=== PATIENT | female | born 1960 | race Caucasian/White ===

== ENCOUNTER → 2016-10-28 | Outpatient (CLI) | payer OTHER, BC ==
[~2016-10-28] MED LIST: NO HOME MEDICATIONS
== END ==
LOC: COL.RAD 10-26 11:30
DX: R22.9 Localized swelling, mass and lump, unspecified (principal); M41.82 Other forms of scoliosis, cervical region
CPT/HCPCS: Q9967

== ENCOUNTER → 2017-01-10 | Outpatient (CLI) | payer OTHER, BC | LOC: MC.RAD 10:30 | DX: Z12.31 Encounter for screening mammogram for malignant neoplasm of breast (principal); N64.89 Other specified disorders of breast ==

== ENCOUNTER → 2017-01-13 | Outpatient (CLI) | payer OTHER, BC | LOC: MC.RAD 13:53 | DX: N60.01 Solitary cyst of right breast (principal); N64.89 Other specified disorders of breast ==

== ENCOUNTER → 2018-01-24 | Outpatient (CLI) | payer BC | LOC: MC.RAD 14:18 | DX: Z12.31 Encounter for screening mammogram for malignant neoplasm of breast (principal) ==

== ENCOUNTER → 2019-03-12 | Outpatient (CLI) | payer BC | LOC: MC.RAD 07:21 | DX: Z12.31 Encounter for screening mammogram for malignant neoplasm of breast (principal) ==

== ENCOUNTER → 2020-03-19 | Outpatient (CLI) | payer BC | LOC: MC.RAD 06:55 | DX: Z12.31 Encounter for screening mammogram for malignant neoplasm of breast (principal) ==

== ENCOUNTER → 2020-04-12 | Outpatient (CLI) | payer BC ==
[2020-04-12 08:31] LABS: HEMATOCRIT 50.8 % (37.0-47.0); HEMOGLOBIN 16.7 g/dl (12.5-16.0); MEAN CELL VOLUME 89 fl (80.0-100.0); MEAN CORPUSCULAR HEMOGLOBIN 29 pg (27.0-31.0); MEAN CORPUSCULAR HGB CONC 33 g/dl (33.0-37.0); MEAN PLATELET VOLUME 10.3 fl (7.4-10.4); PLATELET COUNT 349 K/mm3 (130-400); RED BLOOD COUNT 5.68 M/mm3 (4.10-5.30); REDCELL DISTRIBUTION WIDTH-CV 13.2 % (11.5-14.5)
[2020-04-12 08:53] LABS: CALCIUM 9.5 mg/dL (8.4-10.2); CREATININE, serum 0.91 (0.52-1.25); POTASSIUM 4.3 mmol/L (3.4-5.0)
[2020-04-13 12:20] LABS: CORTISOL, AM (0800) 6 ug/dL (3-20)
== END ==
LOC: COL.LAB 07:53
PROVIDERS: Urology
DX: E27.8 Other specified disorders of adrenal gland (principal)

== ENCOUNTER 2020-04-21 14:49 | Inpatient (IN) | payer BC ==
[~2020-04-21] VITALS: Ht 170.2 cm; Wt 89.5 kg
[2020-05-04] MEDS ORDERED: [UNRECOGNIZED DRUG - OTHER] PO (09:04)
[2020-05-04] MEDS ORDERED: LOPRESSOR 225 MG/TAB PO (09:05)
[2020-05-04] MEDS ORDERED: LIPITOR 10MG10 MG PO (09:05)
[2020-05-04] MEDS ORDERED: ATIVAN 0.50.5 MG/TAB PO (09:06)
[2020-05-04] MEDS ORDERED: PRINIVIL10 MG PO (09:07)
[2020-05-04 09:21] VITALS: BP 122/76; PULSE 93; TEMP 98.2
[2020-05-04 09:26] VITALS: BP 122/76; PULSE 93
--- NOTE | 2020-05-04 09:30 | NUR ---
Patient admitted to room 323. rounded. PLan of care reviewed.
--- NOTE | 2020-05-04 10:00 | NUR ---
rounded & orders obtained.
--- NOTE | 2020-05-04 10:35 | NUR ---
Iv started & IVF per orders. Patient denies pain. medication to pharmacy for label. Will monitor.
[2020-05-04 11:37] LABS: BASO % 0.5 % (0.0-2.0); EOS # 0.1 (0.0-0.7); EOS % 0.9 % (0-4.0); GRAN # 4.5 (1.4-6.5); GRAN % 78.1 % (42.2-75.2); HEMATOCRIT 45.4 % (37.0-47.0); HEMOGLOBIN 14.9 g/dl (12.5-16.0); LYMPH # 0.8 (1.2-3.4); LYMPH % 13.3 % (20.0-51.0); MEAN CELL VOLUME 91 fl (80.0-100.0); MEAN CORPUSCULAR HEMOGLOBIN 30 pg (27.0-31.0); MEAN CORPUSCULAR HGB CONC 33 g/dl (33.0-37.0); MEAN PLATELET VOLUME 10.2 fl (7.4-10.4); MONO # 0.4 (0.1-0.6); MONO % 6.5 % (1.7-9.3); PLATELET COUNT 270 K/mm3 (130-400); RED BLOOD COUNT 5.01 M/mm3 (4.10-5.30); REDCELL DISTRIBUTION WIDTH-CV 13.1 % (11.5-14.5)
[2020-05-04 11:45] LABS: CREATININE, serum 0.86 (0.52-1.25); POTASSIUM 4.3 mmol/L (3.4-5.0)
[2020-05-04 11:58] VITALS: BP 127/73; PULSE 88
--- NOTE | 2020-05-04 12:15 | NUR ---
Vitals remain stable. 5 page assessment completed. Patient tolerates lunch.
--- NOTE | 2020-05-04 14:31 | NUR ---
Patient reports returning to home with Manas as care support. Patient reports that her alternate contact is son Americo . PCP is Dr. Weiner and rx obtained from [facility]. Patient denies having any DME needs or supports. Patient denies having a DPOA. No skilled services. Patient denies any care concerns. Patient indicated no additional needs at this time. Will follow.
[2020-05-04 15:35] VITALS: BP 128/82; PULSE 96; TEMP 98.4
--- NOTE | 2020-05-04 16:45 | NUR ---
Patient complains of a headache. Tylenol per orders. Patient to have only clear liquids for dinner & NPO at middnight. Sprite provided. Vss. Minimal needs. Will monitor.
--- NOTE | 2020-05-04 19:20 | NUR ---
Patient having a popcicle & sprite for dinner. Hs meds given per request. Will report off to night nurse
[2020-05-04 20:00] VITALS: BP 133/79; PULSE 84; TEMP 98.2
--- NOTE | 2020-05-04 20:00 | NUR ---
PATIENT IS A&O. VSS. NO C/O PAIN OR NAUSEA. PATIENT WILL BE NPO AFTER MN FOR SURGERY TOMORROW AM. INDEPENDENT IN ROOM. HEAD TO TOE ASSESSMENT WNL. PM MEDS GIVEN. NO OTHER NEEDS.
--- NOTE | 2020-05-04 23:00 | NUR ---
report received from ERIK Delarosa
--- NOTE | 2020-05-04 23:35 | NUR ---
appears to be dozing, awakens easily when nurse entered room, denies pain or needs at this time
[2020-05-05] VITALS (10 sets, daily range): BP systolic 116–153; BP diastolic 68–90; PULSE 69–106; TEMP 97.4–98.9
--- NOTE | 2020-05-05 01:11 | NUR ---
appears to be sleeping
--- NOTE | 2020-05-05 02:40 | NUR ---
continues to sleep
--- NOTE | 2020-05-05 04:20 | NUR ---
awakened for vital signs, has been sleeping on rounds, denies needs at this time
--- NOTE | 2020-05-05 06:59 | NUR ---
bedside shift report given to ERIK Delarosa
--- NOTE | 2020-05-05 08:00 | NUR ---
PATIENT IS A&O. VSS. PATIENT DENIES PAIN. NPO FOR SURGERY. CONSENT ON CHART. PATIENT IS VERY NERVOUS, SEE ORDERS FOR PRE-OP VALIUM. IV FLUIDS INFUSING INTO LEFT FORARM VIA PUMP. NO C/O N/V. HEAD TO TOE ASSESSMENT COMPLETE. AM MEDS GIVEN. NO OTHER NEEDS. PATIENT INDEPENDENT IN ROOM.
--- NOTE | 2020-05-05 10:40 | NUR ---
PATIENT GOING DOWN TO OR VIA BED. CONSENT ON CHART. PRE-OPS GIVEN. EXTRA IV PUMPS SENT FOR ANESTHESIA.
--- NOTE | 2020-05-05 11:46 | NUR ---
First visit from the analytics specialist. No needs right now.
--- NOTE | 2020-05-05 15:49 | NUR ---
[facility] Therapist contacted patient's , Manas to touch base. Manas confirmed patient sees Dr. Weiner and obtains medications at [facility]. 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 Patient does not use any DME and is independent with ADLS. Manas does not think patient has Advance Directives. SW will continue to follow for discharge needs.
[2020-05-05 16:39] LABS: HEMOGLOBIN 14.3 g/dl (12.5-16.0); MEAN CELL VOLUME 90 fl (80.0-100.0); MEAN CORPUSCULAR HEMOGLOBIN 30 pg (27.0-31.0); MEAN CORPUSCULAR HGB CONC 33 g/dl (33.0-37.0); MEAN PLATELET VOLUME 9.9 fl (7.4-10.4); PLATELET COUNT 281 K/mm3 (130-400); REDCELL DISTRIBUTION WIDTH-CV 12.7 % (11.5-14.5)
[2020-05-05 17:02] LABS: BAND 6 % (0-10); LYMPHOCYTE 2 % (20.0-51.0); NEUTROPHILS 91 % (42.0-75.2); PLATELET ESTIMATE NORMAL (NORMAL)
[2020-05-05 17:10] LABS: ALBUMIN 3.5 gm/dL (3.5-5.0); BILIRUBIN,TOTAL 0.5 mg/dL (0.0-1.0); CALCIUM 8.2 mg/dL (8.4-10.2); CREATININE, serum 0.95 (0.52-1.25); POTASSIUM 4.6 mmol/L (3.4-5.0)
--- NOTE | 2020-05-05 17:55 | NUR ---
PATIENT BACK IN ROOM 323 POST OP. ORIENTED BUT VERY DROWSY. PATIENT NOW HAVE RIGHT IJ WITH POST OP FLUIDS INFUSING VIA PUMP. LEFT WRIST AND LEFT HAND IV'S TO INT. NO C/O N/V. CLEAR LIQUIDS AT BEDSIDE. VSS. PATIENT DENIES PAIN. CAMARENA TO DD WITH SMALL AMOUNTS OF CLEAR YELLOW URINE NOTED. HEAD TO TOE ASSESSMENT COMPLETE. SCD'S TO BLE. PATIENT SLEEPING. CALL LIGHT IN REACH.
--- NOTE | 2020-05-05 19:40 | NUR ---
Pt. laying in bed. Pt. is A&OX3, assessment complete. INT to lt. hand and lt. forearm patent. TLC to rt. IJ patent, IV fluids infusing per orders. Seven adb. lap sites noted, edges well approximated. Pt. denies pain or other needs, call light within reach.
[2020-05-06] VITALS: BP 130/81; PULSE 92; TEMP 97.4
[2020-05-06 04:00] VITALS: BP 150/80; PULSE 94; TEMP 97.7
[2020-05-06 06:00] LABS: BASO % 0.1 % (0.0-2.0); GRAN # 13.6 (1.4-6.5); HEMATOCRIT 40.1 % (37.0-47.0); HEMOGLOBIN 13.2 g/dl (12.5-16.0); LYMPH # 0.9 (1.2-3.4); LYMPH % 5.4 % (20.0-51.0); MEAN CELL VOLUME 90 fl (80.0-100.0); MEAN CORPUSCULAR HEMOGLOBIN 30 pg (27.0-31.0); MEAN CORPUSCULAR HGB CONC 33 g/dl (33.0-37.0); MEAN PLATELET VOLUME 10.2 fl (7.4-10.4); MONO # 1.3 (0.1-0.6); PLATELET COUNT 254 K/mm3 (130-400); RED BLOOD COUNT 4.48 M/mm3 (4.10-5.30); REDCELL DISTRIBUTION WIDTH-CV 13.1 % (11.5-14.5)
[2020-05-06 06:10] LABS: CALCIUM 8.3 mg/dL (8.4-10.2); CREATININE, serum 0.86 (0.52-1.25); POTASSIUM 4.5 mmol/L (3.4-5.0)
[2020-05-06 07:41] VITALS: BP 140/76; PULSE 101; TEMP 97.4
[2020-05-06 11:47] VITALS: BP 129/78; PULSE 105; TEMP 97.8
--- NOTE | 2020-05-06 12:21 | NUR ---
Squires catheter discontinued at [address] order.
--- NOTE | 2020-05-06 12:28 | NUR ---
Dr Nguyen notified of consult.
[2020-05-06 15:27] VITALS: BP 114/65; PULSE 104; TEMP 98
[2020-05-06 20:10] VITALS: BP 117/63; PULSE 91; TEMP 97.5
--- NOTE | 2020-05-06 20:30 | NUR ---
Pt. sitting up in bed at this time. Pt. is A&OX3, assessment complete. INT to lt. wrist and lt. forearm patent. TLC to Rt. IJ patent, IV fluids infusing per orders. Abd. Lap sites x7 well approximated. Pt. denies pain or other needs, call light within reach.
[2020-05-07] VITALS (7 sets, daily range): BP systolic 109–128; BP diastolic 57–74; PULSE 85–101; TEMP 97.4–98
[2020-05-07 08:47] LABS: BASO % 0.2 % (0.0-2.0); EOS # 0.1 (0.0-0.7); EOS % 1.4 % (0-4.0); GRAN # 6.8 (1.4-6.5); GRAN % 79.5 % (42.2-75.2); LYMPH # 0.9 (1.2-3.4); LYMPH % 10.1 % (20.0-51.0); MEAN CELL VOLUME 92 fl (80.0-100.0); MEAN CORPUSCULAR HEMOGLOBIN 30 pg (27.0-31.0); MEAN CORPUSCULAR HGB CONC 33 g/dl (33.0-37.0); MEAN PLATELET VOLUME 10.2 fl (7.4-10.4); MONO # 0.7 (0.1-0.6); MONO % 8.3 % (1.7-9.3); PLATELET COUNT 229 K/mm3 (130-400); RED BLOOD COUNT 4.03 M/mm3 (4.10-5.30); REDCELL DISTRIBUTION WIDTH-CV 13.4 % (11.5-14.5)
[2020-05-07 08:54] LABS: CALCIUM 8.4 mg/dL (8.4-10.2); CREATININE, serum 0.84 (0.52-1.25); POTASSIUM 3.9 mmol/L (3.4-5.0)
[2020-05-07 08:55] LABS: HEMATOCRIT 36.9 % (37.0-47.0)
--- NOTE | 2020-05-07 09:34 | NUR ---
Patient alert and oriented, answers questions appropriately. See assessment. Abdomen soft, non tender, non distended. Bowel sounds active x4 quads. +Flatus. No bowel movement. Lap sites to abdomen with edges well approximated, no redness or drainage noted. ERAS protocol reviwed with patient. No c/o at this time.
--- NOTE | 2020-05-07 21:24 | NUR ---
PT IN BED WITH HOB AT 60 DEGREE ANGLE, A/O X3. DENIES PAIN OR DISCOMFORT AT THIS TIME. PT IS ENCOURAGED TO EAT, BS AT 83. PT HAS NO FURTHER NEEDS AT THIS TIME, CALL LIGHT WITHIN REACH.
[2020-05-08 03:01] VITALS: BP 117/70; PULSE 90; TEMP 98.1
--- NOTE | 2020-05-08 04:53 | NUR ---
SHIFT SUMMARY: PT DID WELL, NO C/O PAIN OR DISCOMFORT. PT HAD BLOOD GLUCOSE BETWEEN 83 AND 71 THIS SHIFT. PT HAD A BLOOD GLUCOSE OF 71 AT MIDNIGHT. BROUGHT IN A SNACK FOR THE PT, BUT PT DID NOT WANT TO EAT MUCH. PT STATED THAT SHE JUST GOT BACK ON A REGULAR DIET AND FELT THAT SHE WOULD GET SICK IF SHE ATE MORE. THE NEXT BLOOD GLUCOSE WAS 79. PT SLEEPING/RESTING IN BED AT THIS TIME, WITH NO C/O PAIN OR DISCOMFORT, CALL LIGHT WITHIN REACH.
[2020-05-08 07:40] VITALS: BP 138/74; PULSE 92; TEMP 98.2
--- NOTE | 2020-05-08 10:30 | NUR ---
AM SHIFT ASSESSMENT COMPLETE. PATIENT REPORTING MILD DISCOMFORT AT INCISION SITES. ABDOMINAL LAP SITES EQUINE INTERNSHIP WITH EDGES WELL APPROXIMATED. KB BISWAS PA-C CALLED AND NOTIFIED OF HOSPITALIST AND SURGEON SIGNING OFF. KB TO ENTER DISCHARGE ORDERS.
--- NOTE | 2020-05-08 11:30 | NUR ---
PATIENTS RIGHT IJ REMOVED PER DOCTOR ORDERS. 2 SUTURES REMOVED. GAUZE & FOAM TAPE PRESSURE DRESSING APPLIED AND PRESSURE HELD FOR 5 MINUTES. PATIENT RESTING ON BACK FLAT FOR 20 MINUTES.
--- NOTE | 2020-05-08 12:49 | NUR ---
DISCHARGE INSTRUCTIONS REVIEWED WITH PATIENT. QUESTIONS SOUGHT AND ANSWERED. PATIENT PERSONAL BELONGINGS GATHERED. PATIENT AMBULATED WITH SURGICAL STAFF TO PERSONAL VEHICLE. PATIENT DISCHARGED.
== END 2020-05-08 12:50 | disposition home or self-care (01) | DRG 614 ==
LOC: SURG 05-01 12:15
PROVIDERS: Hospitalist; Surgery; ADMIT Urology
PROC: 0GT34ZZ Resection of Right Adrenal Gland, Percutaneous Endoscopic Approach (ICD-10-PCS; principal; 2020-05-05 11:30)
PROC: 0DBB4ZZ Excision of Ileum, Percutaneous Endoscopic Approach (ICD-10-PCS; 2020-05-05 11:30)
DX: D35.01 Benign neoplasm of right adrenal gland (principal); C49.A3 Gastrointestinal stromal tumor of small intestine; E87.1 Hypo-osmolality and hyponatremia; R00.0 Tachycardia, unspecified; R19.00 Intra-abdominal and pelvic swelling, mass and lump, unspecified site; E16.2 Hypoglycemia, unspecified; I10 Essential (primary) hypertension; F41.9 Anxiety disorder, unspecified; J30.2 Other seasonal allergic rhinitis; E78.5 Hyperlipidemia, unspecified; Z88.0 Allergy status to penicillin; Z90.710 Acquired absence of both cervix and uterus
CPT/HCPCS: 99223; 99231-AI; 99232-AI; A4314; A9284; C1751; G0378; J0690; J1100; J1885; J2250; J2370; J2405; J2704; J2795; J3010; J3475; J7030; J7060; J7120

== ENCOUNTER → 2020-04-29 | Outpatient (CLI) | payer BC | LOC: COL.RAD 13:35 | DX: E27.8 Other specified disorders of adrenal gland (principal) ==

== ENCOUNTER → 2021-03-20 | Outpatient (CLI) | payer BC ==
[~2021-03-20] MED LIST changes: +ATIVAN 0.50.5 MG/TAB PO; +LIPITOR 10MG10 MG PO; +LOPRESSOR 225 MG/TAB PO; +PRINIVIL10 MG PO; +[UNRECOGNIZED DRUG - OTHER] PO
== END ==
LOC: MC.RAD 06:53
DX: Z12.31 Encounter for screening mammogram for malignant neoplasm of breast (principal)

== ENCOUNTER → 2021-12-02 | Outpatient (CLI) | payer BC | LOC: COL.RAD 11:26 | DX: R31.0 Gross hematuria (principal) | CPT/HCPCS: A9562; J1940 ==

== ENCOUNTER 2024-01-04 13:35 | Emergency (ER) | payer BC ==
[~2024-01-04] VITALS: Ht 170.2 cm; Wt 86.4 kg
[2024-01-04 14:06] VITALS: TEMP 97.7
[2024-01-04] MEDS ORDERED: Ondansetron 4 MG/2 ML VIAL IV ONE (15:00)
[2024-01-04] MEDS ORDERED: LR 1,000 ML IV ONE (15:00)
[2024-01-04] MEDS ORDERED: Morphine 4 MG/ML VIAL IV ONE (15:00)
[2024-01-04 15:38] LABS: BASO # 0.1 K/mm3 (0.0-0.2); BASO % 0.5 % (0.0-2.0); EOS # 0.1 K/mm3 (0.0-0.7); EOS % 0.6 % (0.0-4.0); GRAN # 8.3 K/mm3 (1.4-6.5); GRAN % 79.1 % (42.2-75.2); HEMATOCRIT 50.5 % (37.0-47.0); HEMOGLOBIN 16.9 g/dl (12.5-16.0); LYMPH # 1.4 K/mm3 (1.2-3.4); LYMPH % 13.6 % (20.0-51.0); MEAN CELL VOLUME 88 fl (80.0-100.0); MEAN CORPUSCULAR HEMOGLOBIN 30 pg (27-31); MEAN CORPUSCULAR HGB CONC 34 g/dl (33.0-37.0); MONO # 0.6 K/mm3 (0.1-0.6); MONO % 5.8 % (1.7-9.3); PLATELET COUNT 274 K/mm3 (130-400); RED BLOOD COUNT 5.72 M/mm3 (4.10-5.30); REDCELL DISTRIBUTION WIDTH-CV 13.6 % (11.5-14.5)
[2024-01-04 15:47] LABS: URINE APPEARANCE Cloudy (CLEAR/HAZY); URINE COLOR Yellow (YELLOW)
[2024-01-04 15:48] LABS: URINE BLOOD 3+ (NEGATIVE); URINE GLUCOSE Negative (NEGATIVE); URINE KETONE 1+ (NEGATIVE); URINE NITRATE Negative (NEGATIVE); URINE PROTEIN(semi-quant) 1+ (NEGATIVE); URINE UROBILINOGEN 0.2 E.U/dL (0.2-1.0)
[2024-01-04 15:55] LABS: ALBUMIN 4.3 g/dL (3.4-4.8); BILIRUBIN,TOTAL 0.7 mg/dL (0.2-1.2); CALCIUM 9.5 mg/dL (8.4-10.2); CREATININE, serum 1.23 mg/dL (0.57-1.11); TOTAL PROTEIN 7.5 g/dl (6.2-8.1)
[2024-01-04 16:21] LABS: URINE RBC >50 /hpf (0-2)
[2024-01-04 16:22] LABS: COLLECTION METHOD CLEAN CATCH
[2024-01-04] MEDS ORDERED: FLOMAX 0.40.4 MG/CAP PO (17:46)
[2024-01-04] MEDS ORDERED: ZOFRAN ODT4 MG PO (17:46)
[2024-01-04 18:00] VITALS: BP 151/93; PULSE 98
== END 2024-01-04 18:00 | disposition home or self-care (01) ==
LOC: COL.ER 13:35
PROVIDERS: Emergency Medicine
DX: N13.2 Hydronephrosis with renal and ureteral calculous obstruction (principal); N39.9 Disorder of urinary system, unspecified
CPT/HCPCS: J2270; J2405; J7120

== ENCOUNTER 2024-02-15 07:49 | Day surgery (SDC) | payer BC ==
[~2024-02-15] VITALS: Ht 170.2 cm; Wt 100.4 kg
[~2024-02-15 07:49] MED LIST changes: +FLOMAX 0.40.4 MG/CAP PO; +Famotidine 20 MG TAB PO SCH; +LR 1,000 ML IV SCH; +Meclizine 25 MG TAB PO SCH; +ZOFRAN ODT4 MG PO
[2024-02-15] MEDS ORDERED: PRINIVIL20 MG PO (09:14)
[2024-02-15 09:20] VITALS: BP 139/87; PULSE 95; TEMP 97.6
--- NOTE | 2024-02-15 09:41 | NUR ---
Pt brought to [facility] [place] [facility] by radiology. Admission assessments completed. Consent signed. Pharmacy, medications, and allergies confirmed. 20G IV inserted into RFA on second attempt. Pt is alert, oriented x4, makes needs known, ambulates with steady gait. Will give preop medications when the patient returns from radiology, they estimate they will get her at 1030. Pt reports a loose bottom front tooth. VSS. Denies complaints. Cart in low position, call light within reach.
--- NOTE | 2024-02-15 11:16 | NUR ---
Pt goes to radiology via w/c, returns at this time. Up to BR to void. Denies complaints.
--- NOTE | 2024-02-15 13:06 | NUR ---
Pt up for urine void at this time. at bedside.
[2024-02-15] MEDS ORDERED: Lidocaine PF 2% (20 MG/ML) 5 ML VIAL ONE (14:13)
[2024-02-15] MEDS ORDERED: fentaNYL 50 MCG/ML 5 ML VIAL ONE (14:14)
[2024-02-15] MEDS ORDERED: NORCO 325 MG-51 TAB PO (14:49)
[2024-02-15] MEDS ORDERED: Ibuprofen 600 MG TAB PO PRN (15:00)
[2024-02-15] MEDS ORDERED: Acetaminophen 325 MG TAB PO PRN (15:00)
[2024-02-15] MEDS ORDERED: Ondansetron 4 MG/2 ML VIAL IV PRN ×2 (15:00→15:45)
[2024-02-15] MEDS ORDERED: HYDROmorphone 1 MG/1 ML SYRINGE [PACU/SDC ONLY] IV PRN (15:45)
[2024-02-15] MEDS ORDERED: fentaNYL 50 MCG/ML 1 ML SYRINGE/VIAL [PACU/SDC ONLY] IV PRN (15:45)
[2024-02-15 17:11] VITALS: BP 128/80; PULSE 87
[2024-02-15 17:14] VITALS: BP 127/84; PULSE 88; TEMP 97
--- NOTE | 2024-02-15 17:32 | NUR ---
1711- RECIEVED REPORT FROM ERIK ANN. MONITORS PLACED AND VS OBTAINED. MINIMAL COMPLAINTS OF PAIN AND NO COMPLAINTS OF NASUEA. PEPSI AND PUDDING GIVEN. 1719- DISCHARGE TEACHING DONE WITH PT AND SPOUSE AT BEDSIDE. ANSWERED ALL QUESTIONS. TOLERATING FOOD AND DRINK. PAIN 4/10 REQUESTING PAIN PILL BEFORE DISCHARGE. 1725- IV REMOVED PER ORDERS. PAIN PILL GIVEN AT PT REQUEST TO HELP WITH DRIVE HOME. 1735- PT DISCHARGED VIA WHEELCHAIR TO PRIVATE VEHICLE DRIVEN BY SPOUSE.
== END 2024-02-15 17:35 ==
LOC: SDCO 07:49
DX: C43.62 Malignant melanoma of left upper limb, including shoulder (principal)
CPT/HCPCS: J0690; J2704; J3010; J7120

== ENCOUNTER 2024-03-08 14:03 | Day surgery (SDC) | payer BC ==
[~2024-03-08] VITALS: Ht 170.2 cm; Wt 99.0 kg
[~2024-03-08 14:03] MED LIST changes: -Famotidine 20 MG TAB PO SCH; +HYDROmorphone 1 MG/1 ML SYRINGE [PACU/SDC ONLY] IV PRN; -Meclizine 25 MG TAB PO SCH; +NORCO 325 MG-51 TAB PO; +Ondansetron 4 MG/2 ML VIAL IV PRN; +PRINIVIL20 MG PO; +fentaNYL 50 MCG/ML 1 ML SYRINGE/VIAL [PACU/SDC ONLY] IV PRN; +hydrALAZINE 20 MG/ML 1 ML VIAL IV PRN
[2024-03-08 15:09] VITALS: BP 127/87; PULSE 102; TEMP 98
[2024-03-08] MEDS ORDERED: Ketorolac 30 MG/ML VIAL ONE (17:57)
[2024-03-08] MEDS ORDERED: Ondansetron 4 MG/2 ML VIAL ONE (17:57)
[2024-03-08] MEDS ORDERED: Lidocaine PF 2% (20 MG/ML) 5 ML VIAL ONE (17:57)
[2024-03-08] MEDS ORDERED: dexAMETHasone 10 MG/ML VIAL ONE (17:57)
[2024-03-08] MEDS ORDERED: fentaNYL 50 MCG/ML 2 ML VIAL ONE (17:57)
[2024-03-08] MEDS ORDERED: NS 10 ML IV ONE (17:57)
[2024-03-08] MEDS ORDERED: Midazolam 2 MG/2 ML VIAL ONE (18:16)
[2024-03-08] MEDS ORDERED: Phenylephrine 10 MG/ML VIAL ONE (18:43)
[2024-03-08] MEDS ORDERED: Iohexol 350 - 100 ML VIAL URETER-R ONE (18:44)
[2024-03-08] MEDS ORDERED: Lidocaine 2% (20 MG/ML) 20 ML UROJET UR ONE (18:44)
[2024-03-08] MEDS ORDERED: ePHEDrine 50 MG/ML VIAL ONE (18:58)
--- NOTE | 2024-03-08 20:00 | NUR ---
Recieved pt from pacu
[2024-03-08 22:35] VITALS: BP 120/67; PULSE 104; TEMP 98
[2024-03-08 22:36] VITALS: BP 120/67; PULSE 104; TEMP 98
--- NOTE | 2024-03-08 22:37 | NUR ---
THIS NURSE WALKED THE PT AND HER TO VEHICLE AT 20:52. PT AND GOING HOME.
--- NOTE | 2024-03-08 22:42 | NUR ---
PT ATE CRACKERS AND CHOCOLATE PUDDING. TOLERATED THIS OK. PT ALSO DRANK WATER. PT TOLERATED THIS OK. THIS PT WENT TO BATHROOM AND VOIDED. PT TOLERATED THIS OK.
[2024-03-08 22:43] VITALS: BP 142/85; PULSE 99
== END 2024-03-08 20:52 ==
LOC: SDCO 14:03
DX: N20.2 Calculus of kidney with calculus of ureter (principal); E27.8 Other specified disorders of adrenal gland; Z85.828 Personal history of other malignant neoplasm of skin; Z87.440 Personal history of urinary (tract) infections
CPT/HCPCS: C1769; C2617; J0690; J1100; J1885; J2250; J2371; J2405; J3010; J7120; Q9967

== ENCOUNTER → 2024-04-02 | Outpatient (CLI) | payer BC, OTHER ==
[~2024-04-02] MED LIST changes: -HYDROmorphone 1 MG/1 ML SYRINGE [PACU/SDC ONLY] IV PRN; -LR 1,000 ML IV SCH; +OMNICEF 300MG300 MG PO; -Ondansetron 4 MG/2 ML VIAL IV PRN; +ROXICODONE 55 MG/TAB PO; -fentaNYL 50 MCG/ML 1 ML SYRINGE/VIAL [PACU/SDC ONLY] IV PRN; -hydrALAZINE 20 MG/ML 1 ML VIAL IV PRN
== END ==
LOC: MC.RAD 06:52
DX: Z12.31 Encounter for screening mammogram for malignant neoplasm of breast (principal)